=== PATIENT | female | born 1980 | race Caucasian/White ===

== ENCOUNTER → 2020-07-28 | Outpatient (CLI) | payer OTHER ==
[~2020-07-28] MED LIST: VITAMIN D PO
[2020-07-28 09:16] LABS: BASOPHILS % (AUTO) 1 % (0-1); EOSINOPHILS % (AUTO) 6 % (1-7); LYMPHOCYTES % (AUTO) 23 % (22-44); MEAN CORPUSCULAR HEMOGLOBIN 31.6 pg (27.0-34.8); MEAN CORPUSCULAR HGB CONC 34.2 g/dL (32.4-35.8); MEAN PLATELET VOLUME 7.8 fL (7.4-10.4); MONOCYTES % (AUTO) 6 % (2-9); NEUTROPHILS % (AUTO) 64 % (42-75); PLATELET COUNT 261 x10^3/uL (130-400); RED BLOOD COUNT 4.95 x10^6/uL (3.82-5.3); RED CELL DISTRIBUTION WIDTH 12.4 % (9.6-15.2)
[2020-07-28 09:24] LABS: MD NO
[2020-07-28 09:29] LABS: ALANINE AMINOTRANSFERASE 23 U/L (12-78); ALBUMIN 4.5 g/dL (3.4-5.0); ANION GAP 6 mmol/L (5-15); CALCIUM 9.4 mg/dL (8.5-10.1); CHLORIDE 110 mmol/L (98-107); CREATININE 0.78 mg/dL (0.55-1.02)
[2020-07-28 09:35] LABS: ALKALINE PHOSPHATASE 71 U/L (45-117); BILIRUBIN,TOTAL 0.6 mg/dL (0.2-1.0); TOTAL PROTEIN 7.9 g/dL (6.4-8.2)
== END | disposition home or self-care (01) ==
LOC: STAR 07:57
PROVIDERS: ATTEND Surgery
DX: Z01.812 Encounter for preprocedural laboratory examination (principal); C43.71 Malignant melanoma of right lower limb, including hip; Z20.822 Contact with and (suspected) exposure to COVID-19
CPT/HCPCS: 36415; 80053; 84703; 85025; U0003

== ENCOUNTER 2020-08-03 08:33 | Day surgery (SDC) | payer OTHER ==
[~2020-08-03] VITALS: Ht 170.2 cm; Wt 73.2 kg
[2020-08-03] MEDS ORDERED: LACTATED RINGERS 1,000 ML IV SCH (09:00)
[2020-08-03] MEDS ORDERED: LIDOCAINE-MPF 1%, 2ML INFIL ONE (09:00)
[2020-08-03] MEDS ORDERED: CHLORHEXIDINE 15 ML UDC MM ONE (09:00)
[2020-08-03] MEDS ORDERED: EPINEPHRINE 1 MG/ML, 1ML ONE (10:02)
[2020-08-03] MEDS ORDERED: BUPIVACAINE/PF 0.5% ONE (10:02)
[2020-08-03 10:06] LABS: HCG UR SG 1.013 (1.003-1.030)
[2020-08-03] MEDS ORDERED: FENTANYL PF 100 MCG/2ML ONE (10:10)
[2020-08-03] MEDS ORDERED: SCOPOLAMINE 1MG PATCH TD SCH (10:30)
[2020-08-03] MEDS ORDERED: DEXAMETHASONE 4 MG/ML, 1ML ONE (10:35)
[2020-08-03] MEDS ORDERED: PHENYLEPHRINE 10 MG/ML ONE (10:35)
[2020-08-03] MEDS ORDERED: MIDAZOLAM 1 MG/ML, 2ML ONE (11:00)
[2020-08-03] MEDS ORDERED: ONDANSETRON 2MG/ML, 2ML IVPush PRN (11:30)
[2020-08-03] MEDS ORDERED: OXYcodone 5 MG/5 ML ORAL.SOL UDC PO PRN (11:30)
[2020-08-03] MEDS ORDERED: HYDROcodone/APAP 7.5-325MG/15ML UDC PO PRN (11:30)
[2020-08-03] MEDS ORDERED: PROMETHAZINE 25 MG/ML, 1ML IVPush PRN (11:30)
[2020-08-03] MEDS ORDERED: ACETAMINOPHEN 325 MG TABLET PO PRN (11:30)
[2020-08-03] MEDS ORDERED: HYDROmorphone 1 MG/ML, 1ML INJ IVPush PRN (11:30)
[2020-08-03] MEDS ORDERED: FENTANYL PF 100 MCG/2ML IV PRN (11:30)
[2020-08-03] MEDS ORDERED: NEOSTIGMINE 1 MG/ML, 10ML ONE (11:34)
[2020-08-03] MEDS ORDERED: PROPOFOL 10 MG/ML, 20ML ONE (11:34)
[2020-08-03] MEDS ORDERED: SUCCINYLCHOLINE 20 MG/ML, 10ML ONE (11:34)
[2020-08-03] MEDS ORDERED: ROCURONIUM 10MG/ML,5ML ONE (11:34)
[2020-08-03] MEDS ORDERED: CEFAZOLIN 1,000 MG ONE (11:34)
[2020-08-03] MEDS ORDERED: ONDANSETRON 2MG/ML, 2ML ONE (11:34)
[2020-08-03] MEDS ORDERED: GLYCOPYRROLATE 0.2MG/1ML, 5ML ONE (11:34)
== END 2020-08-03 12:45 | disposition home or self-care (01) ==
LOC: OUT 08:33
PROVIDERS: ATTEND Surgery
DX: C43.71 Malignant melanoma of right lower limb, including hip (principal); F41.8 Other specified anxiety disorders; Z90.49 Acquired absence of other specified parts of digestive tract; Z98.890 Other specified postprocedural states; Z79.899 Other long term (current) drug therapy; Z87.891 Personal history of nicotine dependence
CPT/HCPCS: 14020; 81025; 88307; J0171; J0330; J0690; J1100; J2250; J2370; J2405; J2704; J2710; J3010; J7120